=== PATIENT | female | born 1945 | race Caucasian/White ===

== ENCOUNTER → 2018-08-29 | Outpatient (CLI) | payer MEDICARE ==
[~2018-08-29] MED LIST: DIAZ5TAB PO; IRBE1TAB37 PO; OMEP20TA62 PO; OXYC5TAB2 PO; TRAM50TA2 PO
[2018-08-29 14:31] LABS: BASOPHILS # (AUTO) 0.04 x10^3/uL (0-0.1); BASOPHILS % (AUTO) 1 % (0-1); EOSINOPHILS # (AUTO) 0.19 x10^3/uL (0-0.4); EOSINOPHILS % (AUTO) 3 % (1-7); LYMPHOCYTES # (AUTO) 2.19 x10^3/uL (1-3.4); LYMPHOCYTES % (AUTO) 38 % (22-44); MD NO; MEAN CORPUSCULAR HEMOGLOBIN 30.8 pg (27.0-34.8); MEAN CORPUSCULAR HGB CONC 34.5 g/dL (32.4-35.8); MEAN CORPUSCULAR VOLUME 89.3 fL (80-100); MEAN PLATELET VOLUME 8.2 fL (7.4-10.4); MONOCYTES # (AUTO) 0.53 x10^3/uL (0.2-0.8); MONOCYTES % (AUTO) 9 % (2-9); NEUTROPHILS # (AUTO) 2.81 x10^3/uL (1.8-6.8); NEUTROPHILS % (AUTO) 49 % (42-75); PLATELET COUNT 267 x10^3/uL (130-400); RED BLOOD COUNT 4.56 x10^6/uL (3.82-5.3); RED CELL DISTRIBUTION WIDTH 12.5 % (9.6-15.2)
[2018-08-29 14:46] LABS: ALANINE AMINOTRANSFERASE 68 U/L (12-78); ALKALINE PHOSPHATASE 87 U/L (45-117); BILIRUBIN,TOTAL 0.7 mg/dL (0.2-1.0); CREATININE 1.13 mg/dL (0.55-1.02); TOTAL PROTEIN 7.9 g/dL (6.4-8.2)
[2018-08-29 14:48] LABS: ANION GAP 7 mmol/L (5-15); CALCIUM 9.8 mg/dL (8.5-10.1); CHLORIDE 107 mmol/L (98-107)
[2018-08-29 14:49] LABS: ALBUMIN 4.1 g/dL (3.4-5.0)
== END | disposition home or self-care (01) ==
LOC: STAR 13:38
PROVIDERS: ATTEND Orthopaedic Surgery
DX: Z01.818 Encounter for other preprocedural examination (principal); Z96.651 Presence of right artificial knee joint
CPT/HCPCS: 36415; 80053; 85025; 87081; 93005

== ENCOUNTER 2018-09-12 07:59 | Observation (INO) | payer MEDICARE ==
[2018-08-29 14:06] VITALS: BP 116/82
[~2018-09-12] VITALS: Ht 154.9 cm; Wt 78.2 kg
[~2018-09-12 07:59] MED LIST changes: +APREPITANT 40 MG CAPSULE ONE; +EPINEPHRINE 1 MG/ML, 1ML ONE; +KETOROLAC 60 MG/2 ML ONE; +ROPIvacaine/PF 0.2%, 20 ML ONE; +SODIUM CHLORIDE 0.9% 50 ML ONE; +TRANEXAMIC ACID 100 MG/ML, 10ML ONE
[2018-09-12] MEDS ORDERED: LACTATED RINGERS 1,000 ML IV SCH (09:26)
[2018-09-12] MEDS ORDERED: ACETAMINOPHEN 500 MG TABLET PO ONE (09:30)
[2018-09-12] MEDS ORDERED: GABAPENTIN 300 MG CAPSULE PO ONE (09:30)
[2018-09-12] MEDS ORDERED: OxyconTIN ER 10 MG TAB.ER PO ONE (09:30)
[2018-09-12] MEDS ORDERED: MIDAZOLAM 1 MG/ML, 2ML ONE (10:03)
[2018-09-12] MEDS ORDERED: FENTANYL PF 250 MCG/5ML ONE (10:04)
[2018-09-12] MEDS ORDERED: HYDROmorphone 2 MG/ML, 1ML IVPush PRN ×2 (12:30→13:30)
[2018-09-12] MEDS ORDERED: SCOPOLAMINE PATCH, 1.5MG PATCH.TD72 TD PRN (12:30)
[2018-09-12] MEDS ORDERED: MEPERIDINE/PF 25MG/0.5ML IVPush PRN (12:30)
[2018-09-12] MEDS ORDERED: ONDANSETRON 2MG/ML, 2ML IV PRN (12:30)
[2018-09-12] MEDS ORDERED: OXYcodone 5 MG/5 ML ORAL.SOL UDC PO PRN (12:30)
[2018-09-12] MEDS ORDERED: METOPROLOL 1 MG/ML, 5ML IV PRN (12:30)
[2018-09-12] MEDS ORDERED: hydrALAzine 20 MG/ML, 1ML IV PRN (12:30)
[2018-09-12] MEDS ORDERED: MIDAZOLAM 1 MG/ML, 2ML IV PRN (12:30)
[2018-09-12] MEDS ORDERED: ALBUTEROL/IPRATROPIUM 2.5MG/0.5MG, 3 ML NPPB PRN (12:30)
[2018-09-12] MEDS ORDERED: CEFAZOLIN 1,000 MG ONE (12:56)
[2018-09-12] MEDS ORDERED: PROPOFOL 10 MG/ML, 20ML ONE (12:56)
[2018-09-12] MEDS ORDERED: DEXAMETHASONE 4 MG/ML, 1ML ONE (12:56)
[2018-09-12] MEDS ORDERED: EPHEDRINE 50 MG/ML, 1ML ONE (12:56)
[2018-09-12] MEDS ORDERED: ONDANSETRON 2MG/ML, 2ML ONE (12:56)
[2018-09-12] MEDS ORDERED: OXYcodone 5 MG/5 ML ORAL.SOL UDC ONE (13:18)
[2018-09-12] MEDS ORDERED: FENTANYL PF 100 MCG/2ML ONE (13:18)
[2018-09-12] MEDS: FENTANYL PF 100 MCG/2ML IV PRN ×2 (13:22→13:46)
[2018-09-12] MEDS: ACETAMINOPHEN 500 MG TABLET PO SCH ×2 (13:30→19:52)
[2018-09-12] MEDS ORDERED: PROMETHAZINE 25 MG/ML, 1ML IM PRN (13:30)
[2018-09-12] MEDS ORDERED: ALUMINUM/MAG/SIMETHICONE 30 ML UDC PO PRN (13:30)
[2018-09-12] MEDS ORDERED: ZOLPIDEM 5MG TABLET PO PRN (13:30)
[2018-09-12] MEDS ORDERED: LORazepam 1MG TABLET PO PRN (13:30)
[2018-09-12] MEDS ORDERED: BISACODYL 10 MG SUPP PR PRN (13:30)
[2018-09-12] MEDS ORDERED: METOCLOPRAMIDE 10MG TABLET PO PRN (13:30)
[2018-09-12] MEDS ORDERED: SENNA/DOCUSATE TABLET PO PRN (13:30)
[2018-09-12] MEDS ORDERED: METOCLOPRAMIDE 5 MG/ML, 2ML IVPush PRN (13:30)
[2018-09-12] MEDS ORDERED: POLYETHYLENE GLYCOL 17 GM PACKET PO PRN (13:30)
[2018-09-12] MEDS ORDERED: PSYLLIUM PACKET PO PRN (13:30)
[2018-09-12] MEDS ORDERED: TRANEXAMIC ACID 1,000 MG in SODIUM CHLORIDE 0.9% 100 ML IVPB ONE (13:30)
[2018-09-12] MEDS ORDERED: ONDANSETRON 2MG/ML, 2ML IVPush PRN (13:30)
[2018-09-12] MEDS ORDERED: DIPHENHYDRAMINE 50 MG/ML, 1ML IVPush PRN (13:30)
[2018-09-12] MEDS ORDERED: OXYcodone IR 5MG TABLET PO PRN ×2 (13:30)
[2018-09-12] MEDS ORDERED: DIAZEPAM 5 MG TABLET PO PRN (13:30)
[2018-09-12] MEDS ORDERED: DIPHENHYDRAMINE 25 MG CAPSULE PO PRN (13:30)
[2018-09-12] MEDS ORDERED: MAGNESIUM HYDROXIDE 8%, 30ML UDC PO PRN (13:30)
[2018-09-12] MEDS ORDERED: PROMETHAZINE 12.5 MG SUPP PR PRN (13:30)
[2018-09-12] MEDS ORDERED: ONDANSETRON 4 MG TABLET PO PRN (13:30)
[2018-09-12] MEDS ORDERED: ACETAMINOPHEN 650 MG/20.3 ML UDC PO PRN (13:30)
[2018-09-12] MEDS ORDERED: HYDROmorphone 2 MG/ML, 1ML ONE (13:49)
[2018-09-12] MEDS ORDERED: PROMETHAZINE 25 MG/ML, 1ML ONE (13:59)
[2018-09-12] MEDS: PROMETHAZINE 25 MG/ML, 1ML IV PRN ×2 (14:04→14:10)
[2018-09-12 14:45] VITALS: BP 119/83
[2018-09-12] MEDS: KETOROLAC 30 MG/1 ML IV SCH ×2 (15:41→23:15)
[2018-09-12] MEDS: D5%-0.45% NACL 1,000 ML IV SCH ×2 (15:41→23:15)
[2018-09-12] MEDS: FERROUS SULFATE 325 MG TABLET PO SCH (17:31)
[2018-09-12] MEDS: CALCIUM/VITAMIN D3 250-125 TABLET PO SCH (17:31)
[2018-09-12] MEDS: DOCUSATE 100 MG CAPSULE PO SCH (19:52)
[2018-09-12] MEDS: CEFAZOLIN PMX 1GM/50ML 50 ML IVPB SCH (19:52)
[2018-09-12 20:00] VITALS: BP 117/71
[2018-09-13 00:13] VITALS: BP 104/70
[2018-09-13] MEDS: ACETAMINOPHEN 500 MG TABLET PO SCH ×2 (01:36→08:27)
[2018-09-13 03:30] VITALS: BP 95/62
[2018-09-13] MEDS: CEFAZOLIN PMX 1GM/50ML 50 ML IVPB SCH (04:17)
[2018-09-13] MEDS ORDERED: DEXAMETHASONE 4 MG/ML, 1ML IVPush SCH (06:00)
[2018-09-13] MEDS: KETOROLAC 30 MG/1 ML IV SCH (06:36)
[2018-09-13 08:03] VITALS: BP 98/53
[2018-09-13] MEDS: DOCUSATE 100 MG CAPSULE PO SCH (08:27)
[2018-09-13] MEDS: CALCIUM/VITAMIN D3 250-125 TABLET PO SCH (08:27)
[2018-09-13] MEDS: FERROUS SULFATE 325 MG TABLET PO SCH (08:27)
[2018-09-13] MEDS ORDERED: OXYC5TAB3 PO (08:55)
[2018-09-13] MEDS ORDERED: OMEPRAZOLE 20 MG CAPSULE.DR PO SCH (09:00)
[2018-09-13] MEDS ORDERED: RIVAROXABAN 10 MG TABLET PO SCH (09:00)
[2018-09-13] MEDS ORDERED: IRBESARTAN PO SCH (09:00)
[2018-09-13] MEDS ORDERED: [UNRECOGNIZED DRUG - OTHER] PO SCH (09:00)
[2018-09-13] MEDS ORDERED: HYDROCHLOROTHIAZIDE PO SCH (09:00)
[2018-09-13] MEDS ORDERED: MULTIVITAMINS/MINERALS TABLET PO SCH (09:00)
[2018-09-13] MEDS ORDERED: ASCORBIC ACID 500 MG TABLET PO SCH (09:00)
[2018-09-13] MEDS ORDERED: HYDROCHLOROTHIAZIDE 12.5 MG CAPSULE PO SCH (09:00)
[2018-09-13] MEDS ORDERED: IRBESARTAN 150 MG TABLET PO SCH (09:00)
[2018-09-13] MEDS: D5%-0.45% NACL 1,000 ML IV SCH (09:15)
[2018-09-13 10:33] VITALS: BP 133/76
== END 2018-09-13 11:30 | disposition home or self-care (01) ==
LOC: OUT 07:59 → ORIP 13:15 → 4NOR 14:40 → DCLOUNGE 09-13 11:15
PROVIDERS: ADMIT Orthopaedic Surgery; ATTEND Orthopaedic Surgery
DX: M17.11 Unilateral primary osteoarthritis, right knee (principal); M21.161 Varus deformity, not elsewhere classified, right knee; I10 Essential (primary) hypertension; K21.9 Gastro-esophageal reflux disease without esophagitis; Z87.891 Personal history of nicotine dependence; Z79.899 Other long term (current) drug therapy
CPT/HCPCS: 27447; 36415; 73560; 85014; 85018; 96365; 96366; 96375; 96376; 97116; 97150; 97161; 97165; C1713; C1776; G0378; J0171; J0690; J1100; J1170; J1885; J2250; J2405; J2550; J2704; J2795; J3010; J7120; J8501